=== PATIENT | female | born 1990 | race Caucasian/White ===

== ENCOUNTER 2020-06-01 13:41 | Inpatient (IN) ==
[2020-06-01] MEDS ORDERED: OXYTOCIN 30 UNITS/500 ML BAG IV PRN ×2 (14:34→17:48)
--- NOTE | 2020-06-01 14:43 | History & Physical Report ---
Date of Service June 01, 2020 Assessment & Plan (1) with 38 completed weeks gestation: (2) PROM (premature rupture of membranes): Patient will be admitted and start treatment for GBS. Unfortunately not ruptured prior to the onset of labor. Patient desires to walk and see if co ntractions start. Agree. Fetus reassuring. at 6pm, will be 6 hours and will readdress situation at that time. History of Present Illness Chief Complaint: leaking fluid Primary Care Provider: Justine Turner DO Patient is a 29yowf with iup at 38 3/7 weeks who presents to labor and delivery complaining of lof at noon. copious and clear. No contractions or vb. +fm. uncomplicated. labs--O+/ab-/ri/rprnr/hepb-/hiv-/gc/ct-/ cf/sma-/low risk panorama/gtt x 2 nl/ gbs + urine at 28 weeks. Allergies Allergy/AdvReac Type Severity Reaction Status Date / Time No Known Allergies Allergy Verified 05/30/20 08:30 Home Medications Home Medications Medication Instructions Recorded Confirmed Type prenat.vits,dexter,cug-zulr-lfxbx 1 tab PO DAILY 10/25/19 06/01/20 History Patient History Medical History (Updated 06/01/20 @ 14:42 by Yvrose Munoz MD, FACOG) Hx of varicella Surgical History (Updated 06/01/20 @ 13:56 by Renee Scanlon RN) H/O knee surgery ACL and MCL repair left knee 2006 S/P wisdom tooth extraction Family History Father Hypothyroidism Mother Cervical cancer Ovarian cyst Grandmother (Paternal) Pernicious anemia Hypothyroidism Grandfather (Paternal) Diabetes Heart disease Grandfather (Maternal) Heart disease Family/Other Blood clot in vein Aunt Breast cancer Other Dyslipidemia Hypertension Social History Smoking Status: Never smoker Hx Alcohol Use: No Hx Substance Use: No Preferred Language: German Communication Ability: Effective Supervisor Telephone Information Required: No Beliefs That Will Affect Care: None marital status: marital status details: Brent John (29) [phone] Current Living Situation: Spouse Current Living Situation Comment: lives with spouse, no pets current occupational status: employed 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 Results & Data ([facility]) Vital Signs (Past 12 Hours) Vital Signs Temp Pulse Resp BP 06/01/20 13:57 36.9 C 82 20 120/76 06/01/20 13:52 82 120/76 06/01/20 13:51 36.9 C 20 Code Status & VTE Plan VTE Prophylaxis Plan VTE Prophylaxis will be ordered: No Coding Level of Care Code None Diagnoses with 38 completed weeks gestation Z3A.38 PROM (premature rupture of membranes) O42.90
[2020-06-01] MEDS ORDERED: PENICILLIN G POTASSIUM 6 MU in DEXTROSE 5% 250 ML IV ONE (15:00)
[2020-06-01 15:04] LABS: Hematocrit (blood only) 37.9 % (37-47); Mean Corpuscular Hemoglobin 31.3 pg (25-34); Mean Corpuscular Volume 91.3 fL (80-100); Platelet Count 188 K/uL (130-400); RDW Coefficient of Variation 13.1 % (11.5-14.5); RDW Standard Deviation 43.5 fL (36.4-46.3); Red Blood Count 4.15 M/uL (4.2-5.4); White Blood Count 9.99 K/uL (4.8-10.8)
[2020-06-01] MEDS: LACTATED RINGER'S 1,000 ML IV PRN (15:13)
[2020-06-01 15:14] LABS: Mean Corpuscular Hgb Conc 34.3 g/dL (32-36)
[2020-06-01] MEDS: PENICILLIN G POTASSIUM 3 MU in DEXTROSE 5% 100 ML IV PRN ×2 (19:26→23:59)
--- NOTE | 2020-06-01 19:45 | Labor Progress Brief Note ---
Date of Service June 01, 2020 Subjective By 6pm, patient having minimal contractions. Notes +fm. Still leaking clear fluid. Hungry. Assessment & Plan (1) PROM (premature rupture of membranes): (2) with 38 completed weeks gestation: Will allow to eat and then plan to augment with pitocin. patient is agreeable. cont pcn for gbs +status. fetus reassuring. Admission and Anticipated Discharge Date Admission Date: June 01, 2020 Physical Exam Constitutional: WD/WN, vitals as above Psychiatric: A+Ox3, euthymic affect Genitourinary: cx--deferred toco--rare contraction efm--category one, reactive nst Results & Data ([facility]) Vital Signs (Past 12 Hours) Vital Signs Temp Pulse Resp BP 06/01/20 19:32 69 127/73 06/01/20 19:31 37.0 C 18 06/01/20 18:08 37.0 C 18 06/01/20 17:10 64 107/60 06/01/20 17:08 20 06/01/20 16:01 64 112/80 06/01/20 15:58 36.8 C 20 06/01/20 13:57 36.9 C 82 20 120/76 06/01/20 13:52 82 120/76 06/01/20 13:51 36.9 C 20 Coding Level of Care Code None Diagnoses PROM (premature rupture of membranes) O42.90 with 38 completed weeks gestation Z3A.38
--- NOTE | 2020-06-02 00:15 | Labor Progress Brief Note ---
Date of Service June 02, 2020 Subjective Noting some contractions. Assessment & Plan (1) PROM (premature rupture of membranes): (2) with 38 completed weeks gestation: Continue current management. fetus category one. Admission and Anticipated Discharge Date Admission Date: June 01, 2020 Physical Exam Constitutional: WD/WN, vitals as above Gastrointestinal (Abdomen): soft, gravid Psychiatric: A+Ox3, euthymic affect Genitourinary: cx--1-2/80/-2 toco--q 2-4min efm--145 with mod variability, accels to 170s, no decels pit at 6 (apparently it was leaking into the bed and was at 12 when discovered so not sure how much she had gotten, so restarted at 6) Results & Data ([facility]) Vital Signs (Past 12 Hours) Vital Signs Temp Pulse Resp BP 06/01/20 23:06 60 123/74 06/01/20 23:05 18 06/01/20 22:07 36.8 C 64 18 113/69 06/01/20 20:27 18 06/01/20 20:26 68 133/80 06/01/20 19:32 69 127/73 06/01/20 19:31 37.0 C 18 06/01/20 18:08 37.0 C 18 06/01/20 17:10 64 107/60 06/01/20 17:08 20 06/01/20 16:01 64 112/80 06/01/20 15:58 36.8 C 20 06/01/20 13:57 36.9 C 82 20 120/76 06/01/20 13:52 82 120/76 06/01/20 13:51 36.9 C 20 Coding Level of Care Code None Diagnoses PROM (premature rupture of membranes) O42.90 with 38 completed weeks gestation Z3A.38
--- NOTE | 2020-06-02 03:42 | Labor Progress Brief Note ---
Date of Service June 02, 2020 Subjective Getting very uncomfortable with contractions. Assessment & Plan (1) PROM (premature rupture of membranes): Admission and Anticipated Discharge Date Admission Date: June 01, 2020 continue current management. starting to make some change. epidural on demand. fetus category one. Physical Exam Constitutional: WD/WN, vitals as above Psychiatric: A+Ox3, euthymic affect Genitourinary: cx--"good "3/80/-1-0 toco--q2min, pit off currently, was at 14, had a three minute long contraction that the baby tolerated just fine efm--145 with mod variability, accels to 170s, no decels Results & Data ([facility]) Vital Signs (Past 12 Hours) Vital Signs Temp Pulse Resp BP 06/02/20 02:01 84 114/82 06/02/20 00:30 63 18 116/71 06/01/20 23:06 60 123/74 06/01/20 23:05 18 06/01/20 22:07 36.8 C 64 18 113/69 06/01/20 20:27 18 06/01/20 20:26 68 133/80 06/01/20 19:32 69 127/73 06/01/20 19:31 37.0 C 18 06/01/20 18:08 37.0 C 18 06/01/20 17:10 64 107/60 06/01/20 17:08 20 06/01/20 16:01 64 112/80 06/01/20 15:58 36.8 C 20 Coding Level of Care Code None Diagnoses PROM (premature rupture of membranes) O42.90
[2020-06-02] MEDS: PENICILLIN G POTASSIUM 3 MU in DEXTROSE 5% 100 ML IV PRN ×2 (04:01→07:55)
[2020-06-02] MEDS ORDERED: ePHEDrine sulfate 50 MG/ML AMP ONE (06:19)
[2020-06-02] MEDS ORDERED: BUPIVACAINE 0.25% 30 ML VIAL ONE (06:19)
[2020-06-02] MEDS ORDERED: fentaNYL citrate 100 MCG/2 ML VIAL ONE (06:20)
[2020-06-02] MEDS ORDERED: fentaNYL 2MCG/ML ROPIVACAINE 1.25MG/ML 100 ML BAG EPI ONE (06:20)
[2020-06-02] MEDS ORDERED: diphenhydrAMINE 50 MG/ML VIAL IV PRN (06:27)
[2020-06-02] MEDS ORDERED: NALOXONE HCL 1 MG in SODIUM CHLORIDE 0.9% 1000ML 1,000 ML IV PRN (06:27)
[2020-06-02] MEDS ORDERED: ONDANSETRON INJ 2 MG/ML 2 ML VIAL IV PRN (06:27)
[2020-06-02] MEDS ORDERED: fentaNYL 2MCG/ML ROPIVACAINE 1.25MG/ML 100 ML BAG EPI PRN (06:27)
[2020-06-02] MEDS ORDERED: NALOXONE HCL 0.4 MG/1 ML VIAL/CARP IV PRN (06:27)
[2020-06-02] MEDS ORDERED: ePHEDrine sulfate 50 MG/ML AMP IV PRN (06:27)
--- NOTE | 2020-06-02 06:29 | Anesthesiology Consultation ---
Date of Service June 02, 2020 Assessment & Plan (1) Encounter for pre-operative examination: Chart Review Chart Review: Patient NOT seen in Pre Admission Testing and Acceptable Risk for Labor Epidural Consults Requested none History Height/Weight Height: 5 ft 3 in Weight: 84.368 kg Allergies Allergy/AdvReac Type Severity Reaction Status Date / Time No Known Allergies Allergy Verified 05/30/20 08:30 Medications Home Medications Medication Instructions Recorded Confirmed Last Taken prenat.vits,dexter,opo-oont-rdbhg 1 tab PO DAILY 10/25/19 06/01/20 05/31/20 22:00 Active Medications Generic Name Dose Route Start Last Admin Trade Name Freq PRN Reason Stop Dose Admin Lactated Ringer's 1,000 mls @ 125 mls/hr 06/01/20 14:34 06/01/20 18:55 Lr IV 06/03/20 14:33 125 mls/hr .Q8H PRN Infusion L&D Protocol Protocol Penicillin G Potassium 3 mu/ 106 mls @ 100 mls/hr 06/01/20 14:34 06/02/20 04:01 Dextrose IV 06/11/20 14:33 100 mls/hr Q4H PRN Administration Give until delivery Oxytocin 30 units in 500 mls @ 7 mls/hr 06/01/20 17:48 06/02/20 04:01 Pitocin IV 06/03/20 17:47 0.42 units/hr .Q24H PRN 7 mls/hr Labor Induction/Augmentation Titration Protocol 0.42 UNITS/HR Past Medical History Medical History Hx of varicella Exercise / Class Metabolic Activity II 4-5 Yardwork/Stairs/Walk up hill Past Family History Family History Father Hypothyroidism Mother Cervical cancer Ovarian cyst Grandmother (Paternal) Pernicious anemia Hypothyroidism Grandfather (Paternal) Diabetes Heart disease Grandfather (Maternal) Heart disease Family/Other Blood clot in vein Aunt Breast cancer Other Dyslipidemia Hypertension Past Surgical History Surgical History H/O knee surgery ACL and MCL repair left knee 2006 S/P wisdom tooth extraction Past Anesthesia History No Hx of Anesthesia Complications and No Family Hx of Anesthesia Complications History of PONV No Hx of PONV and No Hx of Motion Sickness Social History Smoking Status: Never smoker Do You Dip or Chew Tobacco: No Hx Alcohol Use: No Hx Substance Use: No Physical Exam Vital Signs Last Vital Signs Temp 36.3 C L 06/02/20 03:57 Pulse 81 06/02/20 06:56 Resp 20 06/02/20 05:15 BP 118/67 06/02/20 06:56 Pulse Ox 99 06/02/20 06:56 Testing Laboratory Results 06/01/20 14:53
[2020-06-02] MEDS ORDERED: SODIUM CHLORIDE 0.9% INJ 10 ML VIAL ONE (06:35)
[2020-06-02] MEDS: LACTATED RINGER'S 1,000 ML IV PRN (07:14)
--- NOTE | 2020-06-02 07:45 | Labor Progress Brief Note ---
Date of Service June 02, 2020 Subjective Reason For Note: Routine Evaluation patient comfortable. Assessment & Plan (1) with 38 completed weeks gestation: (2) PROM (premature rupture of membranes): will cont with pit. fhts categ 1. pt aware i am taking over care. Admission and Anticipated Discharge Date Admission Date: June 01, 2020 Physical Exam Constitutional: WD/WN, vitals as above Neurologic: grossly normal Psychiatric: A+Ox3, euthymic affect Genitourinary: OB Exam Monitor Tracing: + external FHT monitor used (145 mod variability, reactive), + external uterine monitor used (q2. pit at 2), + category I and + normal FHT variability Results & Data ([facility]) Vital Signs (Past 12 Hours) Vital Signs Temp Pulse Resp BP Pulse Ox 06/02/20 07:41 80 122/68 100 06/02/20 07:39 75 120/69 06/02/20 07:36 78 99 06/02/20 07:35 75 101/68 06/02/20 07:32 66 112/68 06/02/20 07:31 66 99 06/02/20 07:29 71 110/66 06/02/20 07:26 75 111/64 99 06/02/20 07:23 75 110/65 06/02/20 07:21 72 99 06/02/20 07:20 67 121/69 06/02/20 07:17 98.6 F 73 20 113/64 99 06/02/20 07:16 72 100 06/02/20 07:14 72 109/65 06/02/20 07:11 69 130/72 100 06/02/20 07:08 67 120/70 06/02/20 07:07 74 124/79 06/02/20 07:06 75 98 06/02/20 07:05 65 117/72 06/02/20 07:02 75 117/73 06/02/20 07:01 68 98 06/02/20 06:59 68 118/68 06/02/20 06:56 81 118/67 99 06/02/20 06:53 79 120/76 06/02/20 06:51 84 116/64 98 06/02/20 06:48 73 135/72 06/02/20 06:46 79 99 06/02/20 06:45 75 136/59 L 06/02/20 06:42 71 141/68 H 06/02/20 06:41 78 100 06/02/20 06:38 74 132/69 06/02/20 06:36 76 119/70 100 06/02/20 05:16 80 129/59 L 06/02/20 05:15 20 06/02/20 03:58 62 119/59 L 06/02/20 03:57 97.3 F L 06/02/20 02:01 84 114/82 06/02/20 00:30 63 18 116/71 06/01/20 23:06 60 123/74 06/01/20 23:05 18 06/01/20 22:07 98.2 F 64 18 113/69 06/01/20 20:27 18 06/01/20 20:26 68 133/80 Coding Level of Care Code None Diagnoses with 38 completed weeks gestation Z3A.38 PROM (premature rupture of membranes) O42.90
[2020-06-02] MEDS ORDERED: miSOPROStoL 200 MCG TAB ONE (10:35)
[2020-06-02] MEDS ORDERED: METHYLERGONOVINE MALEATE 0.2 MG/ML AMP ONE (10:43)
[2020-06-02] MEDS ORDERED: ACETAMINOPHEN 325 MG TAB PO PRN (10:45)
[2020-06-02] MEDS ORDERED: oxyCODONE/ACETAMINOPHEN 5mg/325mg TAB PO PRN (10:45)
[2020-06-02] MEDS ORDERED: SUPERCREAM 0.870% 15 GM JAR EXT PRN (11:05)
[2020-06-02] MEDS ORDERED: BENZOCAINE 20% AER SPR 82.5 GM CAN EXT PRN (11:05)
[2020-06-02] MEDS ORDERED: HYDROCORTISONE ACETATE 25 MG SUPP PR PRN (11:05)
[2020-06-02] MEDS ORDERED: DIPHTHERIA/TETANUS/PERTUSSIS 0.5 ML SYR/VIAL IM ONE (11:05)
[2020-06-02] MEDS ORDERED: OXYTOCIN 30 UNITS/500 ML BAG IV PRN (11:05)
[2020-06-02] MEDS ORDERED: miSOPROStoL 200 MCG TAB PR ONE (11:05)
--- NOTE | 2020-06-02 11:08 | Delivery Summary ---
Vaginal Delivery Summary Date of Service June 02, 2020 The patient dilated to complete and pushed to deliver a viable female Apg ars 9 and 9 via over vaginal laceration. Mouth and nose bulb suctioned at perineum. Shoulders and body delivered with ease. was vigorous and crying at . Cord clamped at 50 seconds of life and infant to maternal abdomen where the cord was then doubly clamped and cut. Placenta delivered spontaneously and intact, three-vessel cord. Hemostasis not achieved with dilute pitocin and uterine massage and therefore rectal cytotec 800mcg placed. Cervix and sulci intact. Laceration repaired in routine fashion with 3-0 vicryl. Hemostasis becoming more adequate with evacuation of clots and massage and still infusing dilute pitocin. EBL 600 cc. Explained to couple nature and methods to help hemorrhage. Mother and baby stable recovery. [facility] Vaginal Delivery Charge Vaginal Delivery Codes: 62485 global code for the antepartum, delivery, and post-
[2020-06-02] MEDS ORDERED: OXYTOCIN 20 UNITS in LACTATED RINGER'S 1,000 ML IV SCH (11:30)
--- NOTE | 2020-06-02 12:14 | Anesthesia Procedure Note ---
Date of Service June 02, 2020 Anesthesia Post Epidural Note Vital Signs Vital Signs: Temp Pulse Resp BP Pulse Ox 98.6 F 75 18 111/62 100 06/02/20 07:17 06/02/20 12:10 06/02/20 11:40 06/02/20 12:10 06/02/20 10:56 Pain Intensity Lower Medial Back: Pain Intensity: 1 Notes Mental Status: alert / awake / arousable and participated in evaluation Nausea / Vomiting: adequately controlled Pain: adequately controlled Airway Patency, RR, SpO2: stable & adequate BP & HR: stable & adequate Hydration State: stable & adequate Neuraxial Anesthesia: was administered and sensory block is resolving Anesthetic Complications: no major complications apparent and Pt Satisfied with anesthetic care Epidural: Removed without complications and With tip intact
[2020-06-02] MEDS: IBUPROFEN 600 MG TAB PO PRN ×2 (14:27→19:38)
[2020-06-02] MEDS: DOCUSATE SODIUM 100 MG CAP PO SCH (21:19)
[2020-06-03] MEDS: IBUPROFEN 600 MG TAB PO PRN ×4 (00:06→17:36)
--- NOTE | 2020-06-03 06:02 | Obstetrical Progress Note ---
Date of Service <Ang Dorsey MD - Last Filed: 06/03/20 07:50> June 03, 2020 Assessment & Plan <Ang Dorsey MD - Last Filed: 06/03/20 07:50> (1) Spontaneous vaginal delivery: Mayra is a 29 y/o female who is now PPD #1 following PROM and subsequent IOL with at 38-4/7 weeks. Her immediate course was complicated by PPH, that was subsequently controlled with massage, Pitocin, and Cytotec. Spontaneous Vaginal Delivery - Feels well today. Eating well, voiding well, ambulating well. - Pain well controlled with ibuprofen 600mg Q4H PRN. - Routine care -- promote OOB and ambulation throughout today. - After discharge will have [address] Wakefield. Hemorrhage - Resolved - s/p massage, Pitocin, and Cytotec during Stage IV - Hemodynamically stale overnight with BPs in the 120s/70s with HR 60-70 - Hgb this AM at 9.9 from 13.0 yesterday - Denies anemic / hypovolemic symptoms Code: Full code Diet: Regular OB diet (2) PROM (premature rupture of membranes): Subjective <Ang Dorsey MD - Last Filed: 06/03/20 07:50> Mayra is a 29 y/o female who is now PPD #1 following PROM and subsequent IOL with at 38-4/7 weeks. Her immediate course was complicated by PPH, that was subsequently controlled with massage, Pitocin, and Cytotec. R eports feeling well overall this morning. Endorses some abdominal cramping with pain well managed on analgesics. Voiding without difficulty. Tolerating meals well and able to ambulate some. Endorses passing gas but not yet bowel movements. Some persistent lochia with some improvement this morning. Breast feeding. Review of Systems Denies fever, chills, sweats Denies shortness of breath, difficulty breathing, chest pain, palpitations, chest pressure. Denies breast pain. Denies dysuria. Denies headache or changes in vision. Physical Exam <Ang Dorsey MD - Last Filed: 06/03/20 07:50> General: Alert, oriented. No acute distress. Cardiac: Regular rate and rhythm, no murmurs/rubs/gallops. Respiratory: Clear to auscultation bilaterally a/p, no wheezes/rales/rhonchi. No increased work of breathing. Symmetrical chest rise. No respiratory distress. Abdomen: Soft, nontender, nondistended. Bowel sounds present. Uterus: Uterine fundus firm, palpable 2 cm below umbilicus. Lower Extremities: No lower extremity edema or swelling. No deep calf pain. Arnulfo's negative bilaterally. Results & Data ([facility]) <Ang Dorsey MD - Last Filed: 06/03/20 07:50> Vital Signs (Past 12 Hours) Vital Signs Temp Pulse Resp BP Pulse Ox 06/03/20 04:50 36.6 C 85 18 122/71 99 06/03/20 00:00 37.2 C 69 18 116/66 99 06/02/20 19:20 36.8 C 74 18 127/75 98 <Carmella Wakefield MD, FACOG - Last Filed: 06/03/20 07:58> Co-Signing Physician Notes Resident Physician Supervision Note: I was present with Dr. Dorsey during the history and exam. I discussed the case with the resident and agree with the findings and plan as documented in the note. Any exceptions or clarifications are listed here: doing well, eating, voiding, ambulating, bleeding controlled. . rh pos, ri. hgb noted. ff 2 down nt. routine pp care. stable. Documented By: Carmella Wakefield MD, FACOG Resident Activity Tracking <Ang Dorsey MD - Last Filed: 06/03/20 07:50> Resident Involvement: Resident Care Provided Care Provided: Adult Hospital Medicine and OB Delivery
[2020-06-03 06:30] LABS: Hemoglobin 9.9 g/dL (12.0-16.0)
[2020-06-03] MEDS: DOCUSATE SODIUM 100 MG CAP PO SCH ×2 (09:10→21:17)
[2020-06-03] MEDS: PRENATAL VITAMIN 1 TAB PO SCH (09:10)
[2020-06-04] MEDS: IBUPROFEN 600 MG TAB PO PRN ×2 (05:17→09:21)
--- NOTE | 2020-06-04 05:28 | Obstetrical Progress Note ---
Date of Service <Ang Dorsey MD - Last Filed: 06/04/20 06:21> June 04, 2020 Assessment & Plan <Ang Dorsey MD - Last Filed: 06/04/20 06:21> (1) Spontaneous vaginal delivery: Mayra is a 29 y/o female who is now PPD #2 following PROM and subsequent IOL with at 38-4/7 weeks. Her immediate course was complicated by PPH, that was subsequently controlled with massage, Pitocin, and Cytotec. Spontaneous Vaginal Delivery - Feels well today. Eating well, voiding well, ambulating well. - Pain well controlled with ibuprofen 600mg Q4H PRN. - Routine care -- promote OOB and ambulation throughout today. - After discharge will have [address] Wakefield. Hemorrhage - Resolved - s/p massage, Pitocin, and Cytotec during Stage IV - Hemodynamically stale overnight with BPs in the 120s-130s/70s-80s with HR 60- 80 - Hgb was stable at 9.9 yesterday -- awaiting results from today - Patient reports minimal bleeding - Denies anemic / hypovolemic symptoms Dispo: anticipate d/c today Code: Full code Diet: Regular OB diet (2) PROM (premature rupture of membranes): Subjective <Ang Dorsey MD - Last Filed: 06/04/20 06:21> Mayra is a 29 y/o female who is now PPD #2 following PROM and subsequent IOL with at 38-4/7 weeks. Her immediate course was complicated by PPH, that was subsequently controlled with massage, Pitocin, and Cytotec. Reports feeling well overall this morning. No lightheadedness, dizziness, or SOB while walking. Endorses some abdominal cramping with pain well managed on analgesics. Voiding without difficulty. Tolerating meals well and able to ambulate some. Endorses passing gas but not yet bowel movements. Some persistent lochia with some improvement this morning. Breast feeding. Review of Systems Denies fever, chills, sweats Denies shortness of breath, difficulty breathing, chest pain, palpitations, chest pressure. Denies breast pain. Denies dysuria. Denies headache or changes in vision. Physical Exam <Ang Dorsey MD - Last Filed: 06/04/20 06:21> General: Alert, oriented. No acute distress. Cardiac: Regular rate and rhythm, no murmurs/rubs/gallops. Respiratory: Clear to auscultation bilaterally a/p, no wheezes/rales/rhonchi. No increased work of breathing. Symmetrical chest rise. No respiratory distress. Abdomen: Soft, nontender, nondistended. Bowel sounds present. Uterus: Uterine fundus firm, palpable 3 cm below umbilicus. Lower Extremities: No lower extremity edema or swelling. No deep calf pain. Arnulfo's negative bilaterally. Results & Data ([facility]) <Ang Dorsey MD - Last Filed: 06/04/20 06:21> Vital Signs (Past 12 Hours) Vital Signs Temp Pulse Resp BP 06/03/20 23:30 37.1 C 66 20 139/84 06/03/20 19:50 36.7 C 85 18 114/72 <Cait Miranda MD - Last Filed: 06/04/20 07:03> Co-Signing Physician Notes I have reviewed the resident's note and examined the patient myself, and agree with the note above. Resident Activity Tracking <Ang Dorsey MD - Last Filed: 06/04/20 06:21> Resident Involvement: Resident Care Provided Care Provided: Adult Hospital Medicine and OB Delivery
[2020-06-04] MEDS: DOCUSATE SODIUM 100 MG CAP PO SCH (09:21)
[2020-06-04] MEDS: PRENATAL VITAMIN 1 TAB PO SCH (09:21)
== END 2020-06-04 15:40 | disposition home or self-care (01) | DRG 806 ==
LOC: OPB 13:41 → 4S1 13:42 → 4S2 06-02 14:00

== ENCOUNTER 2022-04-04 23:09 | Inpatient (IN) ==
[2022-04-04] MEDS ORDERED: LACTATED RINGER'S 1,000 ML IV PRN (23:27)
[2022-04-04] MEDS ORDERED: OXYTOCIN 30 UNITS/500 ML BAG IV PRN (23:27)
[2022-04-04] MEDS ORDERED: PENICILLIN G POTASSIUM 6 MU in DEXTROSE 5% 250 ML IV STA (23:27)
[2022-04-04 23:46] LABS: Hemoglobin 12.4 g/dl (12.0-16.0); Mean Corpuscular Hemoglobin 31.9 pg (25.0-34.0); Mean Corpuscular Hgb Conc 34.4 g/dL (32.0-36.0); Mean Corpuscular Volume 92.5 fL (80.0-100.0); Mean Platelet Volume 9.4 fL (9.4-12.3); Platelet Count 225 K/uL (130-400); RDW Coefficient of Variation 12.5 % (11.5-14.5); RDW Standard Deviation 41.7 fL (36.4-46.3); Red Blood Count 3.89 M/uL (3.93-5.22); White Blood Count 13.68 K/ul (4.8-10.8)
[2022-04-04] MEDS ORDERED: ePHEDrine sulfate 50 MG/ML AMP ONE (23:55)
[2022-04-04] MEDS ORDERED: fentaNYL citrate 100 MCG/2 ML VIAL ONE (23:55)
[2022-04-04] MEDS ORDERED: SODIUM CHLORIDE 0.9% INJ 10 ML VIAL ONE (23:55)
[2022-04-04] MEDS ORDERED: BUPIVACAINE 0.25% 30 ML VIAL ONE (23:56)
[2022-04-04] MEDS ORDERED: LIDOCAINE 2%/EPINEPHRINE 1:200,000 20 ML SDV ONE (23:56)
[2022-04-04] MEDS ORDERED: fentaNYL 2MCG/ML ROPIVACAINE 1.25MG/ML 100 ML BAG EPI ONE (23:56)
--- NOTE | 2022-04-05 00:48 | Anesthesiology Consultation ---
Date of Service April 05, 2022 Assessment & Plan Chart Review Chart Review: Acceptable Risk for Labor Epidural Consults Requested none History Height/Weight Height: 5 ft 3 in Weight: 73.936 kg Allergies Allergy/AdvReac Type Severity Reaction Status Date / Time No Known Allergies Allergy Verified 03/29/22 13:50 Medications Home Medications Medication Instructions Recorded Confirmed Last Taken prenat.vits,dexter,zfe-cglr-ryctr 1 tab PO DAILY 10/25/19 04/04/22 04/04/22 Active Medications Generic Name Dose Route Start Last Admin Trade Name Freq PRN Reason Stop Dose Admin Lactated Ringer's 1,000 mls @ 125 mls/hr 04/04/22 23:27 04/04/22 23:50 Lr IV 04/06/22 23:26 999 mls/hr .Q8H PRN Administration L&D Protocol Protocol Past Medical History Medical History (Updated 01/28/22 @ 14:39 by Sandrita Alcaraz) Hx of varicella Past Family History Family History (Updated 08/27/21 @ 09:54 by Haley RATLIFF RN) Father Hypothyroidism High cholesterol Mother Cervical cancer Breast lump Grandmother (Paternal) Pernicious anemia Hypothyroidism Grandfather (Paternal) Diabetes Heart disease Grandfather (Maternal) Heart disease Family/Other No problems noted. Aunt Breast cancer Mother Aunt Blood clot in vein Mothers Aunt Other Dyslipidemia Hypertension Past Surgical History Surgical History H/O knee surgery ACL and MCL repair left knee 2006 S/P wisdom tooth extraction Social History Smoking Status: Never smoker Hx Alcohol Use: No Hx Substance Use: No Physical Exam Vital Signs Last Vital Signs Temp 36.7 C 04/04/22 23:10 Pulse 81 04/05/22 00:45 Resp 18 04/04/22 23:10 BP 104/55 L 04/05/22 00:45 Pulse Ox 100 04/05/22 00:42 Testing Laboratory Results 04/04/22 23:36
[2022-04-05] MEDS ORDERED: NALOXONE HCL 1 MG in SODIUM CHLORIDE 0.9% 1000ML 1,000 ML IV PRN (00:49)
[2022-04-05] MEDS ORDERED: NALOXONE HCL 0.4 MG/1 ML VIAL/CARP IV PRN (00:49)
[2022-04-05] MEDS ORDERED: diphenhydrAMINE 50 MG/ML VIAL IV PRN (00:49)
[2022-04-05] MEDS ORDERED: fentaNYL 2MCG/ML ROPIVACAINE 1.25MG/ML 100 ML BAG EPI PRN (00:49)
[2022-04-05] MEDS ORDERED: NALBUPHINE HCL INJ 10 MG/ML AMP IV PRN (00:49)
[2022-04-05] MEDS ORDERED: ePHEDrine sulfate 50 MG/ML AMP IV PRN (00:49)
[2022-04-05] MEDS ORDERED: BENZOCAINE 20% AER SPR 82.5 GM CAN EXT PRN (02:11)
[2022-04-05] MEDS ORDERED: HYDROCORTISONE ACETATE 25 MG SUPP PR PRN (02:11)
[2022-04-05] MEDS ORDERED: OXYTOCIN 30 UNITS/500 ML BAG IV PRN (02:11)
[2022-04-05] MEDS ORDERED: DIPHTHERIA/TETANUS/PERTUSSIS 0.5 ML SYR/VIAL IM ONE (02:11)
[2022-04-05] MEDS ORDERED: PENICILLIN G POTASSIUM 3 MU in DEXTROSE 5% 100 ML IV PRN (02:27)
--- NOTE | 2022-04-05 02:44 | Anesthesia Procedure Note ---
Date of Service April 05, 2022 Anesthesia Post Epidural Note Vital Signs Vital Signs: Temp Pulse Resp BP Pulse Ox 37.0 C 88 18 122/64 100 04/05/22 02:15 04/05/22 02:37 04/05/22 02:30 04/05/22 02:37 04/05/22 02:02 Pain Intensity Lower Abdomen: Pain Intensity: 10 Notes Mental Status: alert / awake / arousable Nausea / Vomiting: adequately controlled Pain: adequately controlled Airway Patency, RR, SpO2: stable & adequate BP & HR: stable & adequate Hydration State: stable & adequate Neuraxial Anesthesia: was administered and sensory block is resolving Anesthetic Complications: no major complications apparent and Pt Satisfied with anesthetic care Epidural: Removed without complications and With tip intact
[2022-04-05] MEDS: IBUPROFEN 600 MG TAB PO PRN ×4 (04:28→19:59)
--- NOTE | 2022-04-05 06:23 | Delivery Summary ---
DATE OF SERVICE: 04/05/2022 PROCEDURE: Normal spontaneous vaginal delivery. SURGEON: Chetan Jaquez MD. PREOPERATIVE DIAGNOSES: 1. Single intrauterine at 38 weeks 4 days gestational age. 2. Labor. POSTOPERATIVE DIAGNOSES: 1. Single intrauterine at 38 weeks 4 days gestational age labor. 2. Labor. 3. Status post procedure. ESTIMATED BLOOD LOSS: 300 mL. DRAINS: A Sal catheter. FLUIDS: Continuous lactated Ringer. URINE OUTPUT: Per Sal catheter. COMPLICATIONS: None. FINDINGS: Viable male with weight pending, Apgars were 8 and 9 at one and five minutes respec tively. INDICATIONS: Mayra is a 31-year-old G2, P1 at 30 weeks 4 days gestational age, presented in activ e labor. The patient precipitously progressed in labor to complete-complete, +1 station and underwen t artificial rupture of membranes and then pushed over 4 contractions to achieve delivery. The patie nt did receive an epidural for anesthesia and then penicillin was started per protocol for GBS positi ve status. DESCRIPTION OF PROCEDURE: The patient progressed to 10 cm dilated, 100% effaced, positive 2 station, pushed over intact perineum, received an epidural. With epidural anesthesia, delivered a viable mal e , weight and Apgars as noted above. Head of the delivered in JL position, restitute d to right transverse. No nuchal cord noted. Body and shoulders quickly followed. was note d to be vigorous soon after delivery and 1 minute delayed cord clamping was initiated. Cord was then double clamped and cut. remained on maternal abdomen, continued to be vigorous. Cord blood was obtained. Attention was then turned to delivery of placenta, which was delivered intact, 3-vesse l cord, gentle cord traction. On inspection of the perineum, vagina, and cervix, there was noted to be no lacerations. Sponge and instrument counts were correct at the completion of the case. Both mo ther and were stable in the immediate post-delivery period. Job ID: [id number]
[2022-04-05] MEDS: DOCUSATE SODIUM 100 MG CAP PO SCH ×2 (08:10→20:02)
[2022-04-05] MEDS: FERROUS SULFATE 325 MG TAB PO SCH (08:10)
[2022-04-05] MEDS: PRENATAL VITAMIN 1 TAB PO SCH (08:10)
[2022-04-05] MEDS: ACETAMINOPHEN 325 MG TAB PO PRN (10:16)
[2022-04-06] MEDS: IBUPROFEN 600 MG TAB PO PRN ×2 (03:34→07:47)
--- NOTE | 2022-04-06 06:03 | Obstetrical Progress Note ---
Date of Service <Niru Chaudhary DO - Last Filed: 04/06/22 07:14> April 06, 2022 Assessment & Plan <Niru Chaudhary DO - Last Filed: 04/06/22 07:14> (1) Carrier of group B Streptococcus: (2) Encounter for supervision of normal in multigravida, antepartum: Plan s/p PPD 1: -Vital signs reviewed and WNL, Tmax at 37.2 -Hemoglobin reviewed, 12.4 (04/05) -O+, GBS+, rubella immune -Patient is doing well clinically -Encourage ambulation, monitor and treat pain with motrin PRN, monitor lochia -Return to regular diet -Discussed discharge plan with patient, follow up with [address] Jaquez <Yvrose Munoz MD, FACOG - Last Filed: 04/06/22 07:33> (1) Carrier of group B Streptococcus: (2) Encounter for supervision of normal in multigravida, antepartum: Subjective <Niru Chaudhary DO - Last Filed: 04/06/22 07:14> Mayra is a 31 y/o female who is PPD #1 following at 38 4/7 weeks. Patient was seen and examined at bedside. She reports feeling well overall this morning. Denies any abdominal cramping & pain well managed on analgesics. Voiding without issue. Tolerating meals overnight and able to ambulate some. Endorses passing gas. Has persistent lochia with some improvement this morning. Currently breast feeding. Constitutional: no fever, no chills or no sweats Respiratory: no cough, no dyspnea or no wheezing Cardiovascular: no chest pain, no palpitations or no calf pain Breast: no breast pain Genitourinary (female): no dysuria Neurologic: no headache(s) Physical Exam <Niru Chaudhary DO - Last Filed: 04/06/22 07:14> Constitutional WD/WN, vitals as above no acute distress Respiratory no respiratory distress Auscultation: lungs clear to auscultation bilaterally; no rales, no rhonchi and no wheezes Cardiovascular RRR, no murmur, no edema Extremities: no calf tenderness and no edema Negative Arnulfo's sign bilaterally. Gastrointestinal (Abdomen) Inspection/Auscultation: normal bowel sounds Genitourinary Uterine fundus firm, palpable below the umbilicus. Results & Data ([facility]) <Niru Chaudhary DO - Last Filed: 04/06/22 07:14> Vital Signs (Past 12 Hours) Vital Signs Temp Pulse Resp BP Pulse Ox O2 Del Method 04/05/22 23:17 36.9 C 72 16 99/60 L 97 Room Air 04/05/22 20:42 37.2 C 70 16 109/71 100 Room Air <Yvrose Munoz MD, FACOG - Last Filed: 04/06/22 07:33> Co-Signing Physician Notes Resident Physician Supervision Note: I interviewed and examined the patient. Discussed with Dr. Chaudhary and agree with findings and plan as documented in the note. Any exceptions or clarifications are listed here: Doing well. Desires d/c. Instructions given. Documented By: Yvrose Munoz MD, FACOG Resident Activity Tracking <Niru Chaudhary DO - Last Filed: 04/06/22 07:14> Resident Involvement: Resident Care Provided Care Provided: OB Delivery
[2022-04-06 06:35] LABS: Hematocrit (blood only) 30.3 % (34.1-44.9); Hemoglobin 10.2 g/dl (12.0-16.0)
[2022-04-06] MEDS: ACETAMINOPHEN 325 MG TAB PO PRN (07:47)
[2022-04-06] MEDS: DOCUSATE SODIUM 100 MG CAP PO SCH (07:47)
[2022-04-06] MEDS: PRENATAL VITAMIN 1 TAB PO SCH (07:47)
[2022-04-06] MEDS: FERROUS SULFATE 325 MG TAB PO SCH (07:47)
[2022-04-06] MEDS ORDERED: bisacodyL 5 MG TABEC PO SCH (20:00)
[2022-04-07] MEDS ORDERED: bisacodyL 10 MG SUPP PR PRN
== END 2022-04-06 10:25 | disposition home or self-care (01) | DRG 807 ==
LOC: OPB 23:09 → 4S1 23:10 → 4E2 04-05 05:00
DX: O99.824 Streptococcus B carrier state complicating childbirth; Z37.0 Single live birth; Z3A.38 38 weeks gestation of pregnancy